=== PATIENT | female | born 1975 | race Caucasian/White ===

== ENCOUNTER → 2018-11-28 05:39 | Day surgery (SDC) | payer OTHER ==
--- NOTE | 2018-11-23 10:27 | HP ---
HISTORY AND PHYSICAL: DATE OF SURGERY: 11/28/18. ATTENDING SURGEON: Dr. Sunshine Winters * (DICTATED BY JIMMY DOMINGUEZ) PROCEDURE: Right knee arthroscopic surgery with biopsy. CHIEF COMPLAINT: Right knee pain. HISTORY OF PRESENT ILLNESS: Maxine Huerta is a 42-year-old female who presents to the clinic for followup of right knee pain. 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 She has failed conservative measures; therefore has agreed to undergo right knee arthroscopic surgery with biopsy on 11/28/[address] Winters. PAST MEDICAL HISTORY: Lyme disease. PAST SURGICAL HISTORY: Tonsillectomy and wisdom teeth. The patient denies prior complications with anesthesia. MEDICATIONS: 1. Advil 200 mg as needed. 2. Aleve 220 mg 2 tabs as needed for pain. 3. Vitamin B12 one everyday. 4. Potassium 75 one everyday. 5. Magnesium 400 one everyday. 6. Zinc 50 mg once daily. 7. Multivitamin 1 by mouth daily. 8. Lavender. ALLERGIES: No known drug allergies. FAMILY HISTORY: Positive for colon cancer in grandfather. SOCIAL HISTORY: She lives with her spouse and kid, she works as a certified wellness program manager. She is a former smoker quit in 2009. She exercises occasionally. She is left hand dominant, she denies alcohol consumption. REVIEW OF SYSTEMS: A 14-point review of systems was reviewed with the patient positive for current complaint, otherwise negative. Denies fevers, chills, chest pain, shortness of breath, history of DVT, history of PE, history of bleeding disorder. PHYSICAL EXAMINATION GENERAL: A 43-year-old well developed, well nourished female in no acute distress. VITAL SIGNS: Height 67, weight 123, pulse 70, respiratory rate 16, temperature 97.6 and BMI 19.3 HEENT: Normocephalic, atraumatic. PERRLA. Throat clear. NECK: Supple. LUNGS: Clear to auscultation bilaterally. No wheezing, rhonchi, or rales. HEART: Regular rate and rhythm; S1, S2; no murmur, gallop, rubs no edema. ABDOMEN: Positive bowel sounds, soft nontender. NEUROLOGIC: Alert and oriented x3. Cranial nerves grossly intact. MUSCULOSKELETAL: Right lower extremity, skin is intact. No erythema. Moderate effusion. Range of motion 2 to 120, tender in the medial and lateral joint line. Calves are soft, nontender. +5/5 strength, ankle dorsiflexion, plantar flexion; +2 DP pulses; sensation intact to light touch distally. Left lower extremity skin is intact. No erythema, nontender to palpation. Full plane of range of motion, neurovascularly intact. ASSESSMENT AND PLAN: The patient is scheduled to undergo a right knee arthroscopic surgery by Dr. Winters on 11/28/18. She will follow up in 10-14 days postoperatively for suture removal. Preoperative antibiotics should be held until biopsy has been taken the day of surgery. Percocet will be given for postoperative pain management. JIMMY DOMINGUEZ [id number]/[facility] #: [id number] MTDD
[~2018-11-28 05:39] MED LIST: Acetaminophen TAB* 325 MG PO PRN; Buffered Lidocaine 1% SYRIN* 1 ML/SYRINGE INTRADERM ONE; Chloroprocaine 2%* 20 ML VIAL ONE; DiMENhydriNATE IV* 50 MG/ML VIAL IV PUSH PRN; Ketorolac INJ* 30 MG/ML 1 ML VIAL ONE; Lactated Ringers 1000 ML Bag* 1,000 ML IV SCH; Lidocaine 1% MPF wEPI 200,000* 30 ML SDV ONE; Lidocaine 2% PF * 5 ML VIAL ONE; Midazolam* 1 MG/ML 2 ML VIAL (2 MG) ONE; Naloxone* 0.4 MG/ML 1 ML VIAL IV PRN; Ondansetron INJ* 2 MG/ML VIAL ONE; Phenylephrine INJ* 10 MG/ML 1 ML VIAL (10 MG) ONE; Propofol* 10 MG/ML 20 ML BTL ONE; Propofol* 500 MG/50 ML BTL ONE; Ropivacaine* 2 MG/ML 20 ML VIAL (0.2%) ONE; ceFAZolin 2 GM PREMIX in ORs 2 GM/50 ML BAG IVPB ONE; fentaNYL* 50 MCG/ML 2 ML VIAL (100 MCG VIAL) ONE; oxyCODONE TAB* 5 MG TAB PO PRN
[2018-11-28 10:06] VITALS: BP 116/61
--- NOTE | 2018-11-28 13:34 | OP ---
OPERATIVE REPORT: DATE OF OPERATION: 11/28/18 DATE OF : 75 ATTENDING SURGEON: Sunshine Winters MD. ASSISTANTS: None available. PRE-OP DIAGNOSES: Right knee persistent synovitis and effusion after significant history of Lyme disease, medial meniscus tear. POST-OP DIAGNOSES: Right knee persistent synovitis and effusion after significant history of Lyme disease, medial meniscus tear. OPERATIVE PROCEDURE: 1. Right knee arthroscopy with anterior, medial, and lateral synovectomy. 2. Partial medial meniscectomy. 3. Gram stain, culture, biopsy of the synovium. COMPLICATIONS: None. ESTIMATED BLOOD LOSS: Minimal. SPECIMEN: Specimen sent to the lab for Gram stain, culture, Lyme as well as pathology. INDICATIONS: Maxine Huerta is a 43-year-old female who has had a significant history of several months of knee pain and swelling. She initially presented with Lyme arthritis. She was treated appropriately with a course of antibiotics, but she had persistent effusion, which saw her again and sent her to another ID person who treated her with IV doses of medication. We talked about arthroscopy because she had persistent effusion of her knee and pain; she was unable to fully extend her knee. She has had significant dysfunction and has now atrophy of her legs. The risk and benefits of surgery were discussed at length including, but not limited to bleeding infection, damage to nerves, vessels, surrounding structures, the wound nonhealing, persistent pain, need for surgery, scarring, stiffness, incomplete relief of symptoms, risk of anesthesia. OPERATIVE NOTE: The patient was seen and examined in the preoperative area by the attending surgeon. The correct extremity was marked and consent was confirmed. The patient was then brought to the operating suite where she was placed in the supine position on the operating table. She then underwent general anesthesia under LMA intubation. She was appropriately positioned in the operating bed. Lateral post was positioned. Unsterile tourniquet was placed high on the proximal thigh. The right leg was prepped and draped in the usual sterile fashion beginning with chlorhexidine soap, scrub, and alcohol wipe , and a final prep with ChloraPrep. After an appropriate surgical pause indicating side, site, and procedure, administration of antibiotics an 18 gauge needle was used to try to aspirate the joint. There was a thick, bloody tinged fluid with some debris; therefore, decision was made to do this procedure using the arthroscopic cannula. An 11 blade was used to make an anterolateral incision. The scope was placed then the specimen was obtained, it was serosanguineous. With tissue samples, the culture, Gram stain swab, Lyme panel as well as pathology specimens were obtained at this point and sent as fresh samples. The scope was then positioned into the joint, there was significant synovitis and the multiple loose bodies that appeared to pieces of synovium, no robby pieces of cartilage. It did not appear to be purulent, but it looked similar to what Lyme arthritis can look like. The anteromedial portal was made in an outside in fashion. Shaver was used to debride back the significant synovitic reaction. Electrocautery device was used to maintain hemostasis because there was significant erythematous friable tissue present. The joint was then carefully visualized and lavaged. There were loose bodies in the superior patellar pouch as well as medial and lateral gutters. The medial and lateral menisci were examined. The lateral meniscus had hemorrhage and erythema, but no large unstable flaps. Medially, there was anteromedial fraying and unstable tears this was debrided back using lito and biters. The chondral surfaces had grade 1 changes with softening and friable tissue. The knee was then thoroughly lavaged with 12 L of sterile saline. Once the knee was completely lavaged and removed of any loose debris all the abnormal material was removed. The portals were then irrigated with sterile saline. Portals were closed with 3 -0 nylon and 0.25% ropivacaine was injected into the portals for pain control. Sterile dressings were applied. Cryo/Cuff was applied. She was awoken from anesthesia and transferred to PACU in stable condition. POSTOPERATIVE PLAN: She will be weightbearing as tolerated with crutches. Range of motion as tolerated. Discharged on pain medication. DVT prophylaxis will be considered, but deferred to no previous personal or family history. We will wait for the cultures and treat her accordingly. [id number]/[facility] #: [id number] [facility] CENTERKusum
[2018-11-29 21:14] LABS: B. garinii/B. afzellii PCR Negative (Negative); Lyme Disease Source SYNOVIAL FLUID
[2018-11-30 17:57] LABS: B. garinii/B. afzellii PCR Negative (Negative); Lyme Disease Source SYNOVIAL FLUID
== END | disposition home or self-care (01) ==
LOC: OR 05:39
PROVIDERS: ATTEND Orthopaedic Surgery
DX: M65.861 Other synovitis and tenosynovitis, right lower leg (principal); M23.203 Derangement of unspecified medial meniscus due to old tear or injury, right knee; A69.23 Arthritis due to Lyme disease; M25.461 Effusion, right knee; Z87.891 Personal history of nicotine dependence
CPT/HCPCS: 81025; 87070; 87073; 87116; 87205; 87206; 87476; 87640; 87641; 87798; 88305; J0690; J1885; J2001; J2250; J2400; J2405; J2704; J2795; J3010